=== PATIENT | male | born 1990 | race Caucasian/White ===

== ENCOUNTER → 2020-06-11 | Outpatient (CLI) | payer OTHER ==
[2020-06-11 10:12] LABS: PLATELET COUNT, AUTOMATED 293 10^3/uL (150-450)
[2020-06-11 10:28] LABS: COLLAGEN EPINEPHRINE 79 SECONDS (74-162)
[2020-06-11 10:37] LABS: INR 1.01; PROTHROMBIN TIME 13.5 SECONDS (12.5-14.3)
[2020-06-11 10:38] LABS: PARTIAL THROMBOPLASTIN TIME 28.6 SECONDS (24.2-38.5)
== END ==
LOC: M LAB 09:37
PROVIDERS: ATTEND Physician Assistant
DX: M47.817 Spondylosis without myelopathy or radiculopathy, lumbosacral region (principal)